=== PATIENT | female | born 1980 | race Caucasian/White ===

== ENCOUNTER 2025-01-07 19:03 | Emergency (ER) | payer OTHER, SELFPAY ==
[2025-01-07 19:27] VITALS: BP 139/96
[2025-01-07 19:59] LABS: % Basophils 0.6 % (0-2); % Eosinophils 0.2 % (0-6); % Immature Granulocytes 0.2 % (0-0.5); % Lymphocytes 8.4 % (20.5-51.1); % Monocytes 10.2 % (1.7-9.3); % Neutrophils 80.4 % (42.2-75.2); Absolute Lymphocytes 0.5 10^3/uL (1.2-3.4); Absolute Monocytes 0.6 10^3/uL (0.1-0.6); Absolute Neutrophils 4.3 10^3/uL (1.4-6.5); Hematocrit 40.5 % (37.0-47.0); Hemoglobin 13.7 g/dL (12.0-16.0); Mean Corp Hgb Conc. 33.8 g/dL (33.0-37.0); Mean Corpuscular Volume 88.6 fL (81.0-99.0); Mean Platelet Volume 10.2 fL (7.4-10.4); Nucleated Red Blood Cells % 0 %; Platelet Count 216 10^3/uL (130-400); Red Blood Cell Count 4.57 10^6/uL (4.20-5.40); Red Cell Dist. Width 12.6 % (11.5-14.5); White Blood Cell Count 5.4 10^3/uL (4.8-10.8)
[2025-01-07 20:02] LABS: ALT (SGPT) 13 U/L (0-35); AST (SGOT) 20 U/L (14-36); Albumin 4.4 g/dl (3.5-5.0); Alkaline Phosphatase 71 U/L (38-126); Blood Urea Nitrogen 16 mg/dl (7-17); Calcium 9.2 mg/dl (8.4-10.2); Carbon Dioxide 24 mmol/L (22-30); Chloride 104 mmol/L (98-107); Glucose 124 mg/dl (70-99); Potassium 3.7 mmol/L (3.5-5.1); Sodium 138 mmol/L (135-145); Total Bilirubin 0.6 mg/dl (0.2-1.3); Total Protein 7.8 g/dl (6.3-8.2); eGFR > 60.00
--- NOTE | 2025-01-07 21:15 | ED.GENMED ---
History of Present Illness
General
Chief Complaint: Cold/Flu/URI Symptoms
Source: patient and family
Time Seen by Provider: 01/07/25 21:08
History of Present Illness
History of Present Illness:
44-year-old female presenting to the emergency department for evaluation at the request of her primary care provider after testing positive for the flu today, symptoms started yesterday, noting cough, sore throat, congestion, nausea and vomiting
with decreased p.o. intake. Primary care was concerned patient was dehydrated and was hoping for patient to get IV fluids. No known sick contacts, recent travel or recent antibiotics. No other concerns at this time
Past History
Past History
ED Past Medical History: None
ED Past Surgical History: None
Social History
Tobacco: Non-smoker
Alcohol: None
Drug: None
Living: with family
Review of Systems
Review of Systems
All Other Systems: ROS reviewed and negative except as documented in HPI and ROS
Phy Exam
Physical Exam
Physical Exam:
GENERAL: Alert , in no apparent distress
EYE: conjunctiva clear
Head: Normocephalic atraumatic
NECK: Supple,
ENT: mmm.
LUNGS: no acute respiratory distress
NEUROLOGICAL: Alert and oriented
SKIN: Warm and dry, skin intact.
MUSCULOSKELETAL: well perfused.
PSYCH: Normal and appropriate interaction.
Course
Orders/Labs/Results
Orders:
Orders
01/07/25 19:34
Complete Blood Count/With Diff Urgent
Comprehensive Metabolic Panel Urgent
01/07/25 21:14
0.9% Sodium Chloride 1000 ml [Nss] 1,000 ml IV BOLUS
Ondansetron Injectable [Zofran] 4 mg IV NOW STA
Abnormal Lab Results
01/07/25
19:34
Absolute Lymphs (auto) 0.5 L 10^3/uL
(1.2-3.4)
Neutrophils % 80.4 H %
(42.2-75.2)
Lymphocytes % 8.4 L %
(20.5-51.1)
Monocytes % 10.2 H %
(1.7-9.3)
Glucose 124 H mg/dl
(70-99)
01/07/25 19:34
01/07/25 19:34
Vital Signs
Initial and Last Documented VS:
Initial Vital Signs
Temp Pulse Resp BP Pulse Ox
97.4 F 130 18 139/96 98
01/07/25 19:27 01/07/25 19:27 01/07/25 19:27 01/07/25 19:27 01/07/25 19:27
Last Documented Vital Signs
Temp Pulse Resp BP Pulse Ox
97.4 F 101 18 111/75 100
01/07/25 19:27 01/07/25 22:18 01/07/25 22:18 01/07/25 22:18 01/07/25 22:18
MDM/Problems Addressed
Differential Diagnosis Includes:
Influenza, dehydration, electrolyte derangement
MDM/Problems Addressed:
44-year-old female presenting the ER at the request of primary care provider for evaluation after testing positive for the flu today, symptoms started yesterday. Primary care was concern for mild dehydration. Patient is tachycardic on arrival.
Vital signs otherwise unremarkable. Blood work shows no electrolyte derangement. Will treat with 1 L normal saline as well as 4 mg of Zofran. For Tamiflu sent to pharmacy. Zofran prescription sent as well. Patient otherwise stable for discharge
home and aware of return precautions.
*Pulse Oximetry
Patient hypoxic: no
*Critical Care Note
Total Time (30-74mins, 75-104mins- exclusive of procedures): Not Applicable
ED Attending Note
-
Portions of this chart may have been created with voice recognition software.� Occasional wrong word or��sound alike� substitutions may have occurred due to the inherent limitations of voice recognition software.
Discharge Plan
Departure
Patient Disposition: Home (Routine Discharge)
Date of Disposition: 01/07/25
Time of Disposition: 21:15
Patient with high blood pressure during this ER visit?: No
Discharge Problem:
Influenza A
Instructions: Flu in adults - Discharge instructions
Prescriptions:
New
oseltamivir [Tamiflu] 75 mg capsule
75 mg PO BID 5 Days Qty: 10 0RF
ondansetron 4 mg tablet,disintegrating
4 mg PO TIDPRN PRN (Reason: nausea/vomiting) Qty: 8 0RF
Interventions
Interventions:
*Risk Screen - Suicide Last Done: 01/07/25 19:27
*General Assessment Last Done: 01/07/25 19:27
*Neglect/Abuse Screening Last Done: 01/07/25 19:27
ED- Fall Risk Assessment Last Done: 01/07/25 21:58
*ED COVID-19 Vaccine History Last Done: 01/07/25 19:27
*Nursing Disposition Last Done: 01/07/25 22:40
ED- Pulmonary Assessment Last Done: 01/07/25 21:58
Discharge Date and Time
Discharge Date/Time: 01/07/25 22:40
Print Language: SWEDISH
[2025-01-07] MEDS: ZOFRAN 4 MG IV (21:21)
[2025-01-07] MEDS: NSS 1000 IV (21:22)
[2025-01-07 22:18] VITALS: BP 111/75
== END 2025-01-07 22:40 | disposition home or self-care (01) ==
LOC: EMR 19:03
PROVIDERS: Emergency Medicine; EMERGENCY PHYSICIAN Student in an Organized Health Care Education/Training Program
DX: J02.9 Acute pharyngitis, unspecified (principal)
CPT/HCPCS: 99283; 96374; 96361; 80053; 85025